=== PATIENT | female | born 1965 | race African-American/Black ===

== ENCOUNTER 2022-08-30 14:53 | Day surgery (SDC) | payer BC, OTHER ==
[2022-08-30] MEDS ORDERED: SODIUM CHLORIDE 0.9% 500 ML INFUS.BAG IV ONE (15:29)
[2022-08-30] MEDS ORDERED: morphine CARPU-JECT 4 MG/1 ML DISP.SYRIN IVPUSH ONE (15:33)
[2022-08-30] MEDS ORDERED: morphine SULFATE 4 MG/ML VIAL ONE (15:57)
[2022-08-30 16:11] LABS: BASO % 1.5 % (0-2.0); EOS % 1.8 % (0-4.5); HEMATOCRIT 37.9 % (32.4-45.2); HEMOGLOBIN 12.6 GM/dL (10.7-15.3); LYMPH % 33.5 % (8-40); MCH 30.3 pg (25.7-33.7); MCHC 33.2 g/dl (32.0-36.0); MEAN CELL VOLUME 91.2 fl (80-96); MEAN PLT VOLUME 8.5 fl (7.5-11.1); MONO % 7.8 % (3.8-10.2); NEUT % 55.4 % (42.8-82.8); PLATELET COUNT 340 10^3/uL (134-434); RBC 4.16 M/mm3 (3.60-5.2); RDW 13.7 % (11.6-15.6); WHITE BLOOD COUNT 6.4 K/mm3 (4.0-10.0)
[2022-08-30 16:20] LABS: INR 1.12 (0.83-1.09); POTASSIUM 3.8 mmol/L (3.5-5.1)
[2022-08-30 16:21] LABS: ALBUMIN 3.5 g/dl (3.4-5.0); BLOOD UREA NITROGEN 15.7 mg/dL (7-18); CALCIUM 9.4 mg/dL (8.5-10.1)
[2022-08-30 16:22] LABS: ACTIVATED PTT 35.3 SECONDS (25.2-36.5)
[2022-08-30 16:25] LABS: CREATININE 1.2 mg/dL (0.55-1.3)
[2022-08-30 16:27] LABS: BILIRUBIN,TOTAL 0.4 mg/dL (0.2-1); TOT PROT 7.1 g/dl (6.4-8.2)
[2022-08-30] MEDS ORDERED: ACETAMINOPHEN 1000 MG/100 ML BAG IVPB PRN (18:49)
[2022-08-30] MEDS ORDERED: ONDANSETRON 4 MG/2 ML VIAL IVPUSH PRN (18:52)
[2022-08-30 20:49] VITALS: BMI 25.7
[2022-08-30] MEDS: GABAPENTIN 100 MG CAPSULE PO SCH (22:00)
[2022-08-31] MEDS: GABAPENTIN 100 MG CAPSULE PO SCH ×3 (05:44→21:15)
[2022-08-31 09:10] LABS: BASO % 0.9 % (0-2.0); EOS % 2.4 % (0-4.5); HEMATOCRIT 37.8 % (32.4-45.2); HEMOGLOBIN 12.4 GM/dL (10.7-15.3); LYMPH % 37.9 % (8-40); MCH 30.1 pg (25.7-33.7); MCHC 32.8 g/dl (32.0-36.0); MEAN CELL VOLUME 91.7 fl (80-96); MEAN PLT VOLUME 8.9 fl (7.5-11.1); MONO % 8.8 % (3.8-10.2); PLATELET COUNT 322 10^3/uL (134-434); RBC 4.12 M/mm3 (3.60-5.2); RDW 13.7 % (11.6-15.6); WHITE BLOOD COUNT 5.1 K/mm3 (4.0-10.0)
[2022-08-31 09:18] LABS: INR 1.1 (0.83-1.09); PROTHROMBIN TIME (PATIENT) 12.7 SEC (9.7-13.0)
[2022-08-31 09:21] LABS: ACTIVATED PTT 35.3 SECONDS (25.2-36.5)
[2022-08-31 09:28] LABS: ALBUMIN 3.2 g/dl (3.4-5.0); BLOOD UREA NITROGEN 15.4 mg/dL (7-18)
[2022-08-31 09:31] LABS: PHOSPHOROUS 3.6 mg/dL (2.5-4.9)
[2022-08-31 09:32] LABS: BILIRUBIN,TOTAL 0.6 mg/dL (0.2-1); TOT PROT 6.6 g/dl (6.4-8.2)
[2022-08-31] MEDS ORDERED: BUPIVACAINE HCL/PF 0.25% (2.5MG/ML) 10 ML VIAL ONE (11:12)
[2022-08-31] MEDS ORDERED: ceFAZolin SODIUM 1 GM VIAL IVPB ONE (12:05)
[2022-08-31] MEDS ORDERED: NEOSTIGMINE METHYLSULFATE 0.5 MG/1 ML - 10 ML MDV ONE (12:20)
[2022-08-31] MEDS ORDERED: HEPARIN NA (PORCINE) 5,000 UNITS/ML 1ML VIAL ONE (12:24)
[2022-08-31] MEDS ORDERED: BUPIVACAINE HCL/PF 0.25% (2.5MG/ML) 10 ML VIAL IJ ONE ×2 (12:45)
[2022-08-31] MEDS ORDERED: PROPOFOL 20 ML ONE (12:47)
[2022-08-31] MEDS ORDERED: POLYETHYLENE GLYCOL (HEALTHYLAX) 3350 17 GM PACKET PO PRN (15:44)
[2022-08-31] MEDS ORDERED: ONDANSETRON 4 MG/2 ML VIAL IVPUSH PRN ×2 (15:44→16:12)
[2022-08-31] MEDS ORDERED: PROMETHAZINE HCL 25 MG/1 ML VIAL IVPB PRN (16:12)
[2022-08-31] MEDS: LACTATED RINGERS SOLUTION 1,000 ML IV SCH (16:54)
[2022-08-31] MEDS: oxyCODONE HCL 5 MG TABLET PO PRN (20:10)
[2022-08-31] MEDS ORDERED: ACETAMINOPHEN 1000 MG/100 ML BAG IVPB PRN (20:30)
[2022-08-31] MEDS: DOCUSATE SODIUM 100 MG CAPSULE (FP) PO SCH (21:15)
[2022-09-01] MEDS: LACTATED RINGERS SOLUTION 1,000 ML IV SCH (00:46)
[2022-09-01] MEDS: GABAPENTIN 100 MG CAPSULE PO SCH (06:00)
[2022-09-01] MEDS: oxyCODONE HCL 5 MG TABLET PO PRN ×2 (06:07→10:12)
[2022-09-01] MEDS ORDERED: PANTOPRAZOLE SODIUM 40 MG VIAL IVPUSH SCH ×2 (10:00)
[2022-09-01] MEDS: DOCUSATE SODIUM 100 MG CAPSULE (FP) PO SCH (10:10)
[2022-09-01 11:56] VITALS: BP 111/54; PULSE 70; RESP 16; TEMP 98.1
== END 2022-09-01 13:25 | disposition home or self-care (01) ==
LOC: JER 14:53 → JERBED 18:07 → UNDOADMOB 18:07 → INTOOBSV 18:07 → JERBED 18:49 → UNDOADMOB 18:49 → J6S 20:13 → JERBED 20:13 → JASUSAT 08-31 13:59 → J6S 08-31 14:08 → JASUSAT 09-01 13:25
PROVIDERS: ATTEND Internal Medicine
PROC: 8E0W4CZ Robotic Assisted Procedure of Trunk Region, Percutaneous Endoscopic Approach (ICD-10-PCS; 2022-08-31)
PROC: 0WUF4JZ Supplement Abdominal Wall with Synthetic Substitute, Percutaneous Endoscopic Approach (ICD-10-PCS; principal; 2022-08-31 15:15)
DX: K43.9 Ventral hernia without obstruction or gangrene (principal); K42.9 Umbilical hernia without obstruction or gangrene
CPT/HCPCS: 36415; 80053; 83605; 83735; 84100; 85025; 85610; 85730; 86850; 86900; 86901; 93005; 93010; 94010; 94760; 99285-25; C1781; C9803-CS; J1644; U0003; U0005